=== PATIENT | female | born 1940 ===

== ENCOUNTER 2023-12-30 12:45 | Inpatient (IN) | payer OTHER ==
[~2023-12-30] VITALS: Ht 167.6 cm; Wt 81.6 kg
[2023-12-30] MEDS ORDERED: ROSUVASTATIN CAL5 MG (14:16)
[2023-12-30] MEDS ORDERED: MEMANTINE HCL10 MG (14:16)
[2023-12-30] MEDS ORDERED: [UNRECOGNIZED DRUG - OTHER] (14:17)
[2023-12-30] MEDS ORDERED: LOSARTAN POTASS50 MG (14:17)
[2023-12-30] MEDS ORDERED: NEUROTIN (14:18)
[2023-12-30] MEDS ORDERED: AMLODIPINE 5MG (14:18)
[2023-12-30] MEDS ORDERED: FAMOTIDINE 40MG (14:20)
[2023-12-30] MEDS ORDERED: LANSOPRAZOLE15 MG (14:20)
[2023-12-30] MEDS ORDERED: VIT D (14:21)
[2023-12-30 15:08] LABS: RH POSITIVE
[2023-12-31] MEDS ORDERED: FUROsemide 20 MG/2 ML VIAL IV SCH (14:45)
[2023-12-31] MEDS ORDERED: ENALAPRILAT DIHYDRATE 1.25 MG/ML VIAL IV PRN (14:45)
[2023-12-31] MEDS ORDERED: ACETAMINOPHEN 500 MG GEL..CAP PO PRN (14:45)
[2023-12-31 14:50] VITALS: BP 108/67; O2SAT 100
[2023-12-31] MEDS ORDERED: FAMOTIDINE/PF 20 MG in 0.9 % SODIUM CHLORIDE 8 ML IV PUSH SCH (21:00)
[2024-01-01 00:42] VITALS: BP 144/67; O2SAT 100
[2024-01-01 08:00] VITALS: BP 110/62; O2SAT 95
[2024-01-01] MEDS ORDERED: LOSARTAN POTASSIUM 50 MG TABLET PO SCH (09:00)
[2024-01-01] MEDS ORDERED: HYDROCHLOROTHIAZIDE 25 MG TABLET PO SCH (09:00)
[2024-01-01] MEDS ORDERED: AMLODIPINE BESYLATE 5 MG TABLET PO SCH (09:00)
[2024-01-01] MEDS ORDERED: 0.9 % SODIUM CHLORIDE 1,000 ML IV SCH (12:30)
[2024-01-01 13:12] LABS: HEMATOCRIT 27.5 % (36.0-45.00); MEAN CELL VOLUME 71.1 fL (80.00-100.00); MEAN CORPUSCULAR HGB CONC 31.3 g/dl (32.0-36.0); PLATELET COUNT 813 K/uL (150-450); RED BLOOD COUNT 3.87 M/uL (4.00-6.00); RED CELL DISTRIBUTION WIDTH 18.1 % (11.5-14.5)
[2024-01-01 13:17] LABS: HEMOGLOBIN 8.6 g/dL (12.0-15.00); MEAN CORPUSCULAR HEMOGLOBIN 22.2 pg (27.00-32.0)
[2024-01-01 13:35] LABS: ALBUMIN 3.2 gm/dL (3.4-5.0); BILIRUBIN TOTAL 0.45 mg/dL (0.3-1.2); CALCIUM 10.2 mg/dL (8.5-10.1); CREATININE SERUM 0.69 mg/dL (0.55-1.02); GFR 81.65; GLOBULINA 4.3 G/DL (2.4-3.5); POTASSIUM 3.91 mEq/L (3.5-5.1); TOTAL PROTEIN 7.5 gm/dL (6.4-8.2)
[2024-01-01 14:09] LABS: URINE APPEARANCE Clear; URINE BILIRRUBIN Negative (NEGATIVE); URINE BLOOD Negative; URINE COLOR Yellow; URINE GLUCOSE Negative (NEGATIVE); URINE KETONE Negative (NEGATIVE); URINE LEUKOCYTE Negative; URINE NITRATE Negative; URINE PROTEIN Negative (NEGATIVE)
[2024-01-01 14:12] LABS: URINE BACTERIA 1.2 uL (0.0-1933); URINE EPITHELIAL CELLS 0.7 uL (0.0-38.8); URINE RBC 1.2 uL (0.0-20.8); URINE WBC 1.6 uL (0.0-23.2)
[2024-01-01 16:14] VITALS: BP 149/65; O2SAT 98
[2024-01-01] MEDS ORDERED: POLYETHYLENE GLYCOL 3350 17 GM BLIST.PACK PO SCH (17:00)
[2024-01-02] VITALS: BP 107/66; O2SAT 96
[2024-01-02 08:00] VITALS: BP 139/63; O2SAT 96
[2024-01-02] MEDS ORDERED: MEMANTINE HCL 10 MG TABLET PO SCH (09:00)
[2024-01-02 12:55] LABS: HEMATOCRIT 30.3 % (36.0-45.00); MEAN CELL VOLUME 72.3 fL (80.00-100.00); MEAN CORPUSCULAR HEMOGLOBIN 23.9 pg (27.00-32.0); MEAN CORPUSCULAR HGB CONC 33.1 g/dl (32.0-36.0); PLATELET COUNT 792 K/uL (150-450); RED BLOOD COUNT 4.19 M/uL (4.00-6.00); RED CELL DISTRIBUTION WIDTH 19.9 % (11.5-14.5)
[2024-01-02 15:35] VITALS: BP 116/56; O2SAT 98
[2024-01-03] VITALS: BP 115/68; O2SAT 95
[2024-01-03 06:34] LABS: HEMATOCRIT 30.4 % (36.0-45.00); HEMOGLOBIN 10.2 g/dL (12.0-15.00); MEAN CORPUSCULAR HEMOGLOBIN 24.5 pg (27.00-32.0); MEAN CORPUSCULAR HGB CONC 33.5 g/dl (32.0-36.0); PLATELET COUNT 750 K/uL (150-450); RED BLOOD COUNT 4.16 M/uL (4.00-6.00); RED CELL DISTRIBUTION WIDTH 20.3 % (11.5-14.5)
[2024-01-03 06:46] LABS: INR 1.03; PARTIAL THROMBOPLASTIN TIME 31.2 SECONDS (22.0-34.0); PROTHROMBIN TIME 11.2 SECONDS (9.0-11.5)
[2024-01-03 07:30] VITALS: BP 123/79; O2SAT 98
[2024-01-03] MEDS ORDERED: POLYETHYLENE GLYCOL 3350 238 GM POWDER PO NR (12:30)
[2024-01-03] MEDS ORDERED: METRONIDAZOLE/SODIUM CHLORIDE 500 MG/100 ML PIGGYBACK IV SCH (13:15)
[2024-01-03] MEDS ORDERED: CEFTRIAXONE SODIUM 2,000 MG VIAL IV SCH (13:15)
[2024-01-03] MEDS ORDERED: Cyanocobalamin/Mecobalamin 1 TAB.SL SL NR (14:30)
[2024-01-03] MEDS ORDERED: BISACODYL 5 MG TABLET.EC PO SCH (16:00)
[2024-01-03] MEDS ORDERED: IRON FUM,PS/FOLIC/BCOMP,C NO.9 1 CAP CAPSULE PO SCH (17:00)
[2024-01-03 17:50] VITALS: BP 121/56; O2SAT 98
[2024-01-04 00:43] VITALS: BP 135/63; O2SAT 99
[2024-01-04 08:25] VITALS: BP 116/66; O2SAT 95
[2024-01-04] MEDS ORDERED: Cyanocobalamin/Mecobalamin 1 TAB.SL SL SCH (09:00)
[2024-01-04] MEDS ORDERED: METRONIDAZOLE/SODIUM CHLORIDE 500 MG/100 ML PIGGYBACK IV ONE (12:30)
[2024-01-04] MEDS ORDERED: LIDOCAINE HCL 1%/EPINEPHRINE 20ML VIAL IJ ONE (12:30)
[2024-01-04] MEDS ORDERED: BUPIVACAINE HCL 30 ML VIAL IJ ONE (12:30)
[2024-01-04] MEDS ORDERED: CEFTRIAXONE SODIUM 2,000 MG VIAL IV ONE (12:30)
[2024-01-04] MEDS ORDERED: OxyCODONE HCL 5 MG TABLET (ROXICODONE) PO PRN (13:15)
[2024-01-04] MEDS ORDERED: ONDANSETRON HCL 2 MG/ML VIAL IV PRN (13:15)
[2024-01-04] MEDS ORDERED: MORPHINE SULFATE 2 MG/ML CARTRIDGE IV PRN (13:15)
[2024-01-04] MEDS ORDERED: DEXTROSE 50 % IN WATER 0.5 G/ML DISP.SYRIN IV PRN (13:15)
[2024-01-04] MEDS ORDERED: SUGAMMADEX SODIUM 200 MG/2 ML VIAL IV ONE (13:45)
[2024-01-04] MEDS ORDERED: ACETAMINOPHEN 500 MG GEL..CAP PO SCH (14:00)
[2024-01-04 15:17] LABS: HEMOGLOBIN 9.7 g/dL (12.0-15.00); MEAN CELL VOLUME 74.5 fL (80.00-100.00); MEAN CORPUSCULAR HEMOGLOBIN 24.1 pg (27.00-32.0); MEAN CORPUSCULAR HGB CONC 32.4 g/dl (32.0-36.0); PLATELET COUNT 778 K/uL (150-450); RED BLOOD COUNT 4.03 M/uL (4.00-6.00)
[2024-01-04 15:22] LABS: CALCIUM 9.6 mg/dL (8.5-10.1); CREATININE SERUM 0.81 mg/dL (0.55-1.02); GFR 67.86; MAGNESIUM 2.2 mg/dL (1.8-2.4); PHOSPHOROUS 4.5 mg/dL (2.5-4.9); POTASSIUM 4.11 mEq/L (3.5-5.1)
[2024-01-04] MEDS ORDERED: POLYETHYLENE GLYCOL 3350 17 GM BLIST.PACK PO SCH (17:00)
[2024-01-04] MEDS ORDERED: HYOSCYAMINE SULFATE 0.125 MG TAB.SUBL SL SCH (17:00)
[2024-01-04 17:35] VITALS: BP 116/62; O2SAT 96
[2024-01-04] MEDS ORDERED: FAMOTIDINE/PF 20 MG/2 ML VIAL IV PUSH SCH (21:00)
[2024-01-04] MEDS ORDERED: CELECOXIB 200 MG CAPSULE PO SCH (21:00)
[2024-01-05 00:54] VITALS: BP 118/70; O2SAT 97
[2024-01-05 07:37] LABS: HEMATOCRIT 29.1 % (36.0-45.00); MEAN CELL VOLUME 73.5 fL (80.00-100.00); MEAN CORPUSCULAR HGB CONC 32.1 g/dl (32.0-36.0); PLATELET COUNT 693 K/uL (150-450); RED BLOOD COUNT 3.96 M/uL (4.00-6.00); RED CELL DISTRIBUTION WIDTH 21.3 % (11.5-14.5)
[2024-01-05 07:39] LABS: HEMOGLOBIN 9.3 g/dL (12.0-15.00); MEAN CORPUSCULAR HEMOGLOBIN 23.4 pg (27.00-32.0)
[2024-01-05 08:00] VITALS: BP 113/68; O2SAT 96
[2024-01-05 08:08] LABS: ALBUMIN 2.7 gm/dL (3.4-5.0); CALCIUM 9.2 mg/dL (8.5-10.1); CREATININE SERUM 0.86 mg/dL (0.55-1.02); GFR 63.33; MAGNESIUM 2.3 mg/dL (1.8-2.4); PHOSPHOROUS 4.6 mg/dL (2.5-4.9); POTASSIUM 3.72 mEq/L (3.5-5.1)
[2024-01-05 16:34] VITALS: BP 113/71; O2SAT 99
[2024-01-05] MEDS ORDERED: ENOXAPARIN SODIUM 40 MG/0.4 ML SYRINGE SUBCUTANEO SCH (17:00)
[2024-01-05] MEDS ORDERED: SOD FERRIC GLUC COMPLX/SUCROSE 62.5 MG/5 ML AMPUL IV SCH (17:27)
[2024-01-05 23:45] VITALS: BP 109/65; O2SAT 99
[2024-01-06 08:09] VITALS: BP 116/70; O2SAT 95
[2024-01-06] MEDS ORDERED: FOLIC ACID 1 MG TABLET PO SCH (09:00)
[2024-01-06] MEDS ORDERED: ENOXAPARIN SODIUM 40 MG/0.4 ML SYRINGE SUBCUTANEO SCH (09:00)
[2024-01-06 16:00] VITALS: BP 127/60; O2SAT 97
[2024-01-07 01:21] VITALS: BP 130/62; O2SAT 99
[2024-01-07 08:00] VITALS: BP 143/61; O2SAT 98
== END 2024-01-07 16:14 | disposition home or self-care (01) | DRG 330 ==
LOC: SURH 12-31 14:10
PROVIDERS: Internal Medicine; ADMIT Surgery; ATTEND Surgery
PROC: 30233N1 Transfusion of Nonautologous Red Blood Cells into Peripheral Vein, Percutaneous Approach (ICD-10-PCS; 2023-12-31)
PROC: 07BB4ZZ Excision of Mesenteric Lymphatic, Percutaneous Endoscopic Approach (ICD-10-PCS; 2024-01-04)
PROC: 0DTF4ZZ Resection of Right Large Intestine, Percutaneous Endoscopic Approach (ICD-10-PCS; principal; 2024-01-04 07:00)
DX: C18.2 Malignant neoplasm of ascending colon (principal); I50.20 Unspecified systolic (congestive) heart failure; K55.1 Chronic vascular disorders of intestine; R59.0 Localized enlarged lymph nodes; D50.9 Iron deficiency anemia, unspecified; E78.49 Other hyperlipidemia; I11.0 Hypertensive heart disease with heart failure; G30.9 Alzheimer's disease, unspecified; F02.80 Dementia in other diseases classified elsewhere, unspecified severity, without behavioral disturbance, psychotic disturbance, mood disturbance, and anxiety